=== PATIENT | female | born 1985 | race Caucasian/White ===

== ENCOUNTER → 2020-09-08 17:06 | Outpatient (CLI) | payer BC, SELFPAY ==
[2020-06-01 10:01] VITALS: BMI 29.4
== END ==
PROVIDERS: PCP Family Medicine; Referring Provider Obstetrics & Gynecology; Visit Provider Obstetrics & Gynecology
DX: Z03.818 Encounter for observation for suspected exposure to other biological agents ruled out (principal)
CPT/HCPCS: 87635; C9803; U0002

== ENCOUNTER 2020-09-12 05:03 | Inpatient (IN) | payer BC, SELFPAY ==
[2019-07-16 10:07] VITALS: BMI 27.1
[2020-06-01 10:01] VITALS: BMI 29.4
--- NOTE | 2020-09-06 13:12 | HP.PCM_ITS ---
History and Physical Date of Admission: 09/12/20
--- NOTE | 2020-09-06 13:12 | PCM.HP.BLA ---
History and Physical Date of Admission: 09/12/20
--- NOTE | 2020-09-07 08:33 | PCM.HP.BLA ---
History and Physical Date of Admission: 09/12/20 Expand AllCollapse All? Expand All by Default Hide copied text Hover for details Pre-Op History and Physical ? HPI: The patient is a 34 year old female presenting for pre-operative visit. She is scheduled for , for H/o T incision on uterus- delivery with lower uterine segment fibroid? on 09/12/20.? ?Procedure discussed along with risks, benefits and complications.? Other alternatives discussed for management. Consent form signed? Yes.? PAST MEDICAL HISTORY PAST MEDICAL HISTORY DiagnosisDate ?Anemia in pregnancy07/11/2020 ?HELLP syndrome? ?Pre-eclampsia affecting , antepartum01/23/2017 ? PAST SURGICAL HISTORY PAST SURGICAL HISTORY ProcedureLateralityDate ? SECTION HX 01/23/2017 ?T incision on uterus - 29.5 wks? ?EXCISION OF LINGUAL TONSIL 1991 ?wisdom teeth extraction 2003 ? ? ? CURRENT MEDICATIONS Current Outpatient Medications MedicationSigDispenseRefill ?labetalol (TRANDATE) 200 mg tabletTake 1 tablet by mouth three times daily.180 tablet1 ?ferrous sulfate 325 mg (65 mg iron) tabletTake 325 mg by mouth twice daily with meals. ? ?ondansetron (ZOFRAN) 4 mg tabletTake 1 tablet by mouth every 8 hours as needed for Nausea/Vomiting. (Patient not taking: Reported on 05/19/2020 )30 tablet1 ? Hpscldga-Ur-Yku-Fe-FA ( VITAMIN) tabTake 1 tablet by mouth. ? ?aspirin, enteric coated (ASPIRIN, ENTERIC COATED) 81 mg EC tabletTake 81 mg by mouth once daily. ? ?pyridoxine, vitamin B6, (VITAMIN B6) 100 mg tabletTake 100 mg by mouth once daily. ? ? Current Facility-Administered Medications MedicationDoseRouteFrequencyProviderLast RateLast Admin ?betamethasone acetate-betamethasone sodium phosphate 12 mg injection (CELESTONE) 12 mgINTRAMUSCULARq 24 HRDeidre Olena Alvarado MD 12 mg at 09/06/20 1139 ? ? ALLERGIES: Patient has no known allergies. ? PERSONAL HISTORY:? SOCIAL HISTORY Social History ? Tobacco Use ?Smoking status:Never Smoker ?Smokeless tobacco:Never Used Vaping Use ?Vaping Use:Never used Substance Use Topics ?Alcohol use:No ?Drug use:No ?? ? FAMILY HISTORY:? FAMILY HISTORY FAMILY HISTORY? ProblemRelationAge of Onset ?ThyroidMother? hypo ?NoneFather? ?No Known ProblemsBrother? ?HeartMaternal Grandfather? ?Kidney DiseaseMaternal Grandfather? ?CancerMaternal Grandmother? breast? ?No Known ProblemsPaternal Grandmother? ?No Known ProblemsPaternal Grandfather? ? ? REVIEW OF SYMPTOMS: negative except as noted above ? PHYSICAL EXAMINATION: ? VITALS: Blood pressure 127/91, weight 195 lb (88.5 kg), last menstrual period 12/31/2019, currently . ? GENERAL:? The patient is well nourished, well hydrated in no acute distress.? , The patient is oriented to time, place, and person. NECK: full range of motion ABD: gravid, non tender? GENITALIA: Normal external genitalia, no lesions? ? IMPRESSION: with EDC 10/07/20 scheduled for repeat c/s at 36+ weeks for h/o T incision on uterus ? PLAN:? ?[place] today and tomorrow - due to planned delivery ? Pt has been counseled on risks/benefits and alternatives of surgery including but not limited to anesthesia, bleeding, infection, injury to pelvic structures including bowel, bladder, ureters and vessels.? Pt wishes to proceed with surgery at this time. Reviewed possible that the lower uterine segment fibroid may interfere with my incision and subsequent delivery of the fetus with a low transverse incision at that point counseled her that I may need to make a classical incision for delivery.? We discussed possible risk for blood transfusion if bleeding occurs.? Reviewed possible special care nursery for delivery. Continue labetalol 200 mg 3 times daily for chronic hypertension.? After delivery will follow-up with PCP for medication adjustment as needed. ? ? I have reviewed and updated past medical and surgical history, medications and allergies? Melissa Alvarado MD Assessment & Plan Assessment/Plan (1) Delivery by section using T-shaped incision: (2) History of delivery, currently in third trimester: (3) History of HELLP syndrome, currently : (4) Chronic hypertension affecting : (5) Uterine fibroid during , antepartum:
[2020-09-12] VITALS (37 sets, daily range): BP systolic 102–168; BP diastolic 52–103; PULSE 58–95; RESP 12–18; TEMP 35.7–36.6; O2SAT 93–100; BMI 30.8
[2020-09-12] MEDS: Lactated Ringers 1,000 ML 999 ML IV (05:40)
[2020-09-12 05:49] LABS: Absolute Lymphocyte Count 1.77 X10^3/uL (0.83-4.51); Absolute Neutrophil Count 5.1 X10^3/uL (2.0-7.7); Basophil# 0.01 X10^3/uL; Basophil% 0.1 % (0-1); Eosinophil# 0.03 X10^3/uL; Eosinophils% 0.4 % (0-5); Hematocrit 30.5 % (37-47); Hemoglobin 10.4 g/dL (12.0-15.0); Lymphocyte # 1.77 X10^3/ul (0.83-4.51); Lymphocyte % 24.4 % (19-41); Mean Corp Hgb Conc 34.1 g/dL (32-36); Mean Corpuscular Volume 87.9 fL (81-99); Mean Platelet Vol. 10.6 fl (6.2-12.0); Monocyte# 0.29 X10^3/uL; NRBC Flagged by Analyzer 0 % (0-5); Neutrophil % 70.4 % (47-70); Platelet Count 170 K/mm3 (150-450); RBC Distribution Width CV 14.8 % (11.6-14.6); RBC Distribution Width SD 46.9 fl (35.1-43.9); Red Blood Count 3.47 M/mm3 (4.2-5.4); White Blood Count 7.3 K/mm3 (4.4-11.0)
[2020-09-12] MEDS: Acetaminophen 500 MG Tablet 1000 MG PO ×4 (05:58→23:40)
[2020-09-12] MEDS: Lactated Ringers 1,000 ML 150 ML IV (07:02)
[2020-09-12] MEDS: Sodium Citrate/Citric Acid 30 ML UDC PO (07:02)
[2020-09-12] MEDS: Cefazolin 2 GM in 0.9% Normal Saline 100 ML IV (07:22)
[2020-09-12] MEDS: Oxytocin 30 units/NS 500 ml 30 UNITS/500 ML IV.SOLN 167 UNITS IV (08:27)
--- NOTE | 2020-09-12 08:35 | EX.PCM.OBRPT ---
Maternal Data Information Final SMITH: 10/07/20 Final SMITH Source: US <20 weeks Gestational age: 36.3 Details Operative Information Date of Procedure: 09/12/20 Pre-Operative Diagnosis: Chronic HTN, Gestation- 36 weeks, Previous T incision on uterus Post-Operative Diagnosis: same, Live female Indications for : Repeat Elective , Previous Uterine Surgery and - (Previous T incision ) Classification: Scheduled Procedure Type: low transverse software implementation specialist #1: Tania Conley Type of Anesthesia: Spinal Special Medications: duramorph Antibiotic Given: Ancef 2 grams IV x1 Drain: Campbell to straight drain Estimated Blood Loss: 700 Fluids Replaced: 1200 Findings Description of Procedure: Start time: 743 End time 812 Delivery time 747 infant weight 2650g After informed consent was obtained the patient was taken the operating room she was given spinal anesthesia. She was then placed in the supine position. She was prepped and draped in the normal sterile fashion. Anesthesia was found to be adequate. At this time a Pfannenstiel skin incision was made with a knife was carried down to the underlying layer of the fascia. The fascial incision was then extended laterally using curved Blum scissor. Attention was then turned to the superior aspect of the fascial edge was grasped with 2 straight [place] clamps tented up and the rectus muscle dissected off sharply using curved Blum scissor. Attention was then turned to the inferior aspect where again Mitch clamps were placed in the rectus muscles were tented up and the fascia was dissected off sharply using the curved Blum scissor. Rectus muscles were then in the midline bluntly and peritoneum was entered bluntly. Gentle opposing traction was placed. At this time the vesicouterine peritoneum was identified. No obvious uterine defectes noted from previous T incison. Fibroid superior to incision site. Scalpel was used to make a uterine incision in a low transverse fashion. The uterus was then entered bluntly gentle opposing traction was placed to extend this incision. Membranes were ruptured clear. 's head was brought to the uterine incision was delivered atraumatically. Delayed cord clamping. Cord was clamped and cut was handed to the waiting nursery team. The Placenta was removed from the uterus. The uterus reamined in the intraabdominal cavity. The uterus was cleared of all clots and debris using a lap. At this time the uterine incision was reapproximated using #1 Vicryl in a running locked fashion. Hemostasis was appreciated. Gutters were cleared of all clots and debris. Uterine incision was reevaluated and noted to be of excellent hemostasis. Mela placed. At this time the peritoneum and muscle were grasped with Kellys reapproximated using #2 Vicryl suture in a running fashion. Fascia was then reapproximated using #1 Vicryl in a running fashion. Subcu layer was reapproximated with #2 0 plain gut suture in an interrupted fashion. Subcu layer was closed using 4-0 Monocryl in a subcu fashion. Dry sterile dressing was applied. Instrument lap needle count correct ?2. Anticipated normal postoperative course. Presentation: Positive for Vertex Amniotic Membrane Rupture Type: Artificial Amniotic Fluid Description: Clear Placental Delivery Description: Expressed Placenta Disposition: [facility] Cord Vessel Description: 3 Vessels Cord Entanglement: None Infant A Gender: Female (1 minute): 8 (5 minute): 9 Delayed Cord Clamping: Yes Complications Risks of Surgery Discussed w/Patient: Bleeding, Anesthesia Risks, Infection, Need for Future C-Sections and Injury to surrounding structure(s) including bowel and bladder Complications: none Admit VTE Documentation VTE Present on Admission: Yes VTE Mechan Device Prophylaxis: SCD's VTE Pharm Prophylaxis Ordered: No Reason Prophylaxis Not Ordered: Procedure Not Indicated
[2020-09-12] MEDS: Ketorolac 30 MG/ML Syringe IV ×3 (09:10→20:41)
[2020-09-12] MEDS: Labetalol 200 MG Tablet PO ×2 (09:44→14:56)
[2020-09-12] MEDS: Labetalol (Prefilled) 20 MG/4 ML IV (10:34)
[2020-09-12] MEDS: Magnesium Sulfate 4gm/100mL 4 GM/100 ML IV.SOLN. IV (10:36)
[2020-09-12] MEDS: Ondansetron 4 MG/2 ML Vial IV (10:42)
[2020-09-12] MEDS: Magnesium Sulfate 4gm/100mL 2 GM/50 ML IV.SOLN. IV (11:02)
[2020-09-12 11:10] LABS: Hematocrit 28.5 % (37-47); Hemoglobin 9.6 g/dL (12.0-15.0); Mean Corp Hgb Conc 33.7 g/dL (32-36); Mean Corpuscular Hgb 29.6 pg (27.0-32.0); Mean Platelet Vol. 11.3 fl (6.2-12.0); Platelet Count 177 K/mm3 (150-450); RBC Distribution Width CV 14.9 % (11.6-14.6); Red Blood Count 3.24 M/mm3 (4.2-5.4); White Blood Count 9.6 K/mm3 (4.4-11.0)
[2020-09-12 11:17] LABS: Protein, Urine (Random) 12.9 mg/dL (<11.9); Protein:Creat Ratio 147 mg/g CRE (0-200)
[2020-09-12] MEDS: Magnesium Sulfate 20 GM/500 ML BAG IV ×3 (11:17→20:36)
[2020-09-12 11:21] LABS: AST(SGOT) 17 U/L (15-37); Alanine Aminotransfer ALT/SGPT 13 U/L (13-56); Creatinine, Serum 0.55 mg/dL (0.55-1.02); EST Glomerular Filtration Rate 134 mL/min (>60); Est Glom Filt Rate - Afr Amer 162 mL/min (>60); Uric Acid 5.6 mg/dL (2.6-6.0)
[2020-09-12 11:24] LABS: International Normalized Ratio 1.1; Prothrombin Time (Protime)PT. 13.3 SECONDS (11.7-14.9)
[2020-09-12 11:25] LABS: Partial Thromboplast Time 24.3 Seconds (24.1-36.2)
[2020-09-12] MEDS: Lactated Ringers 1,000 ML 50 ML IV (11:43)
--- NOTE | 2020-09-12 11:45 | NURSING ---
Bedside shift report given to Brianna Nagy RN. She will assume care of patient at this time.
[2020-09-12] MEDS: Ferrous Sulfate 325 MG Tablet PO ×2 (12:05→17:58)
[2020-09-12] MEDS: 0.9% Saline Lock 10 ML Syringe IV (20:41)
[2020-09-13] VITALS (15 sets, daily range): BP systolic 100–145; BP diastolic 47–84; PULSE 78–106; RESP 16–18; TEMP 36.6–37.4; O2SAT 94–99
[2020-09-13] MEDS: Ketorolac 30 MG/ML Syringe IV (02:49)
[2020-09-13] MEDS: 0.9% Saline Lock 10 ML Syringe IV ×2 (02:49→10:36)
--- NOTE | 2020-09-13 03:42 | NURSING ---
Void in documentation on MAR Magnesium flowsheet. At 2335,0135, & 0240 patellar reflexes 2+normal.
[2020-09-13 04:56] LABS: Hematocrit 25.7 % (37-47); Hemoglobin 8.5 g/dL (12.0-15.0); Mean Corp Hgb Conc 33.1 g/dL (32-36); Mean Corpuscular Hgb 29.5 pg (27.0-32.0); Mean Corpuscular Volume 89.2 fL (81-99); Mean Platelet Vol. 10.4 fl (6.2-12.0); Platelet Count 165 K/mm3 (150-450); RBC Distribution Width CV 15.3 % (11.6-14.6); RBC Distribution Width SD 49.4 fl (35.1-43.9); Red Blood Count 2.88 M/mm3 (4.2-5.4); White Blood Count 8.7 K/mm3 (4.4-11.0)
[2020-09-13] MEDS: Lactated Ringers 1,000 ML 50 ML IV (05:51)
[2020-09-13] MEDS: Magnesium Sulfate 20 GM/500 ML BAG IV (05:55)
[2020-09-13] MEDS: Acetaminophen 500 MG Tablet 1000 MG PO ×4 (06:25→23:48)
[2020-09-13] MEDS: Ibuprofen 600 MG Tablet PO ×3 (08:06→21:23)
--- NOTE | 2020-09-13 09:13 | PCM.PROGNOTE ---
Subjective Subjective Doing well per patient and nursing staff. Ambulating and taking PO without difficulty. Voiding and galicia out. Not passing flatus. Continues on Mag due to severe range BP PP. Denies headache, visual changes, chest pain, shortness of breath, dizziness, leg pain, increased vaginal bleeding or clots. Pain controlled. without difficulty. Objective Data Objective Data Vital Signs: Vital Signs Temp Pulse Resp BP Pulse Ox 98.6 F 88 16 112/67 99 09/13/20 07:40 09/13/20 07:40 09/13/20 07:40 09/13/20 07:40 09/13/20 07:40 Oxygen Delivery Method Room Air Weight: 194 lb 0.108 oz Body Mass Index (BMI) 30.8 Intake & Output: Intake and Output for Last 24 Hours 09/11/20 09/12/20 09/13/20 23:59 23:59 23:59 Intake Total 4508.35 / 4508.35 1560.85 / 1560.85 Output Total 1800 / 1800 1050 / 1050 Balance 2708.35 / 2708.35 510.85 / 510.85 Lab / Micro Data Result Diagrams: 09/13/20 04:50 09/12/20 10:50 Labs: Laboratory Results - last 24 hr 09/12/20 09/12/20 09/12/20 10:50 10:50 10:50 WBC 9.6 RBC 3.24 L Hgb 9.6 L Hct 28.5 L MCV 88.0 MCH 29.6 MCHC 33.7 RDW Std Deviation 47.0 H RDW Coeff of Faisal 14.9 H Plt Count 177 MPV 11.3 PT INR APTT Creatinine 0.55 Estim Creat Clear Calc 136.20 Est GFR (MDRD) Af Amer 162 Est GFR (MDRD) Non-Af 134 Uric Acid 5.6 AST 17 ALT 13 U Random Total Protein Urine Creatinine Protein/Creatinin Ratio Screen NEGATIVE Baby's Blood Type O POSITIVE Baby's NIYA NEGATIVE 09/12/20 09/12/20 09/13/20 10:50 10:50 04:50 WBC 8.7 RBC 2.88 L Hgb 8.5 L Hct 25.7 L MCV 89.2 MCH 29.5 MCHC 33.1 RDW Std Deviation 49.4 H RDW Coeff of Faisal 15.3 H Plt Count 165 MPV 10.4 PT 13.3 INR 1.1 APTT 24.3 Creatinine Estim Creat Clear Calc Est GFR (MDRD) Af Amer Est GFR (MDRD) Non-Af Uric Acid AST ALT U Random Total Protein 12.9 H Urine Creatinine 87.90 Protein/Creatinin Ratio 147 Screen Baby's Blood Type Baby's NIYA Physical Exam Const alert and oriented x3 General Appearance: cooperative Orientation / Consciousness: awake, oriented to person, oriented to place and oriented to time Exam Limitations: no limitations HEENT normocephalic Head and Scalp: normal to inspection, normocephalic and atraumatic Face and Sinus: normal facial exam Eyes General Eye: normal appearance of both eyes Neck full ROM Chest Chest: symmetrical chest wall rise Resp normal respiratory effort and normal air movement Auscultation: clear to auscultation bilaterally Cardio regular rate, regular rhythm, S1 normal heart sound, S2 normal heart sound, no murmurs, no rub, no gallops and no clicks GI normal to inspection, nondistended, normoactive bowel sounds and non-tender GI Narrative: Fundus firm 2 below U. Dressing dry and intact appearance of the vagina normal Bladder / Kidney Exam: no CVA tenderness Back/Spine normal ROM Extremity normal to inspection and full ROM Skin no rashes or lesions noted Neuro oriented x3, CN's II-XII intact bilaterally and moves all extremities Sensorium / Orientation: awake, alert and oriented to person Motor Exam: clonus absent Deep Tendon Reflexes: Rt Patellar (L4): 2+ and Lt Patellar (L4): 2+ Assessment & Plan Assessment/Plan (1) Chronic hypertension affecting : (2) Delivery by section using T-shaped incision: (3) Acute blood loss anemia: PLAN: 1) Routine postoperative care 2) BP stable, continue magnesium infusion for 24 hrs then d/C 3) [place] out and urinating 4) Hgb 8.5, repeat CBC in am, asymptomatic 5) Pain management 6) Plan D/C home POD #3
[2020-09-13] MEDS: Senna/Docusate Sodium 1 Tablet PO (09:51)
[2020-09-13] MEDS: Ferrous Sulfate 325 MG Tablet PO ×2 (12:21→17:42)
[2020-09-13] MEDS: Labetalol 200 MG Tablet PO ×2 (14:38→22:13)
[2020-09-14 02:41] VITALS: BP 130/78; PULSE 88; RESP 16; TEMP 36.6; O2SAT 97
[2020-09-14] MEDS: Ibuprofen 600 MG Tablet PO ×2 (02:44→08:35)
[2020-09-14 05:50] LABS: Absolute Lymphocyte Count 1.57 X10^3/uL (0.83-4.51); Absolute Neutrophil Count 5.8 X10^3/uL (2.0-7.7); Basophil# 0.02 X10^3/uL; Basophil% 0.3 % (0-1); Eosinophil# 0.03 X10^3/uL; Eosinophils% 0.4 % (0-5); Hematocrit 24.3 % (37-47); Hemoglobin 7.9 g/dL (12.0-15.0); Lymphocyte # 1.57 X10^3/ul (0.83-4.51); Lymphocyte % 19.8 % (19-41); Mean Corp Hgb Conc 32.5 g/dL (32-36); Mean Corpuscular Hgb 29.8 pg (27.0-32.0); Mean Corpuscular Volume 91.7 fL (81-99); Mean Platelet Vol. 10.2 fl (6.2-12.0); Monocyte# 0.51 X10^3/uL; Monocyte% 6.4 % (0-10); NRBC Flagged by Analyzer 0 % (0-5); Neutrophil # 5.75 X10^3/uL (2.7-7.7); Neutrophil % 72.6 % (47-70); Platelet Count 159 K/mm3 (150-450); RBC Distribution Width CV 15.9 % (11.6-14.6); RBC Distribution Width SD 51.6 fl (35.1-43.9); Red Blood Count 2.65 M/mm3 (4.2-5.4); White Blood Count 7.9 K/mm3 (4.4-11.0)
[2020-09-14 06:07] VITALS: BP 137/78; PULSE 86
[2020-09-14] MEDS: Labetalol 200 MG Tablet PO ×2 (06:09→12:57)
[2020-09-14] MEDS: Acetaminophen 500 MG Tablet 1000 MG PO ×2 (06:36→12:32)
[2020-09-14 08:34] VITALS: BP 125/65; PULSE 97; RESP 16; TEMP 36.5
--- NOTE | 2020-09-14 09:15 | PN.OBGYN_ITS ---
Subjective Subjective Patient seen at bedside, doing well. Patient reports good pain control. Mild lochia. Patient is passing flatus,+ bowel movement, voiding without difficulty, ambulating without feeling short of breath or dizzy. Denies nausea or vomiting. No headaches or visual changes. Breast-feeding going well. Objective Data Objective Data Vital Signs: Vital Signs Temp Pulse Resp BP Pulse Ox 97.7 F L 97 16 125/65 H 97 09/14/20 08:34 09/14/20 08:34 09/14/20 08:34 09/14/20 08:34 09/14/20 02:41 Oxygen Delivery Method Room Air Weight: 88 kg Body Mass Index (BMI) 30.8 Intake & Output: Intake and Output for Last 24 Hours 09/12/20 09/13/20 09/14/20 23:59 23:59 23:59 Intake Total 4508.35 / 4508.35 2045.02 / 2045.02 Output Total 1800 / 1800 1950 / 1950 Balance 2708.35 / 2708.35 95.02 / 95.02 Lab / Micro Data Result Diagrams: 09/14/20 05:35 09/12/20 10:50 Labs: Laboratory Results - last 24 hr 09/14/20 05:35 WBC 7.9 RBC 2.65 L Hgb 7.9 L Hct 24.3 L MCV 91.7 MCH 29.8 MCHC 32.5 RDW Std Deviation 51.6 H RDW Coeff of Faisal 15.9 H Plt Count 159 MPV 10.2 Immature Gran % (Auto) 0.500 Neut % (Auto) 72.6 H Lymph % (Auto) 19.8 [place] % (Auto) 6.4 Eos % (Auto) 0.4 Baso % (Auto) 0.3 Absolute Neuts (auto) 5.8 Absolute Lymphs (auto) 1.57 Nucleated RBC % 0 ROS Review of Systems ROS Unobtainable: Denies due to encephalopathy, due to endotracheal tube, due to mental condition, due to mental status or other Physical Exam Const alert, oriented x3 and no apparent distress General Appearance: cooperative and comfortable HEENT normocephalic GI GI Narrative: Dressing dry and intact. Abdomen soft nontender. Uterus Palpation: uterus fundus firm Assessment & Plan (1) Acute blood loss anemia: (2) Uterine fibroid during , antepartum: (3) Chronic hypertension affecting : (4) Delivered by delivery following previous delivery: PLAN: Recheck CBC at lunch- patient is asymptomatic. Start IRON 325mg BID VS stable- BPs controlled with Labetalol- continue 200mg TID dc home today if CBC stable
--- NOTE | 2020-09-14 09:21 | PCM.DC ---
Discharge Instructions Diet Discharge Diet: No restrictions Activity Discharge Activity: May not drive while taking narcotic pain medications. and May Shower May resume sexual activity in: 6-8 weeks Lifting Restrictions: 25 Dressing / Incision Call your doctor if your incision/area has: Continuous Slow Oozing, Sudden Increased Bleeding, Increased Pain/ Swelling, Increased Redness, Foul Smelling Discharge and Swelling at the incision site Call your doctor if you observe: Fever of 101 or Higher, Inability to urinate, Using more than one pad per hour and Uncontrolled pain Additional Dressing/Incision Instructions:: remove dressing at 7 days post op- if it becomes saturated prior to that time you may remove it. Let soap and water run over incision sites and dab dry. keep incision clean and dry. Follow Up Care Please Follow Up With: Melissa Rao MD When: 1-2 weeks post of incision check and again at 6 weeks post . [phone] Test Results: Test results from this visit will be discussed in further detail at your follow-up appointment, if applicable. Discharge Plan Admission Admit Date/Time: 09/12/20 05:03 Attending Provider: Melissa Rao Primary Care Provider: Tami Hancock Discharge Orders/Prescriptions Prescriptions: New acetaminophen 500 mg Tablet 1,000 mg PO Q6 Qty: 60 RF: 0 ibuprofen 600 mg tablet 600 mg PO Q6H Qty: 60 RF: 0 sennosides-docusate sodium [Stool Softener-Stimulant Laxat] 8.6-50 mg Tablet 1 - 2 tab PO DAILY Qty: 14 RF: 0 simethicone [Mi-Acid Gas Relief(simethicon)] 80 mg Tablet,Chewable 80 mg PO TID Qty: 20 RF: 0 Continued labetalol 200 mg tablet 200 mg PO TID RF: 0 ferrous sulfate [iron] 325 mg (65 mg iron) Tablet 325 mg PO BID RF: 0 Discontinued Aspirin Low Dose 81 mg PO/SL DAILY RF: 0 Referrals / Follow Up: Tami Hancock MD [Primary Care Provider] -
--- NOTE | 2020-09-14 10:28 | DS.PCM_ITS ---
Discharge Summary Date of Admission: 09/12/20 Date of Discharge: 09/14/20 Summary: Patient was admitted to [facility] September 12, 2020 for a repeat low transverse section at 36.3 weeks gestation due to prior T- incision on the uterus. Patient had a couple of severe range blood pressures immediately postop and decision was made to place on magnesium sulfate for 24 hours. Blood pressures normalized. Patient still taking labetalol 200 mg 3 times daily. Patient remained asymptomatic in the hospital and her preeclamptic labs were within normal limits. Patient had acute on chronic blood loss anemia with a starting hemoglobin of 10.9 down to the lowest 7.9 on postoperative day #2. Patient remained asymptomatic. Ambulating without difficulty. Patient discharged home on postoperative day #2 with the intent she will continue to monitor blood pressures at home 2-3 times daily. She will follow-up in the office on Friday, September 18, 2020 for a blood pressure check. Meaningful Use Info Meaningful Use Diagnoses (Choose all that apply): None applicable Discharge Plan Admission Admit Date/Time: 09/12/20 05:03 Attending Provider: Melissa Rao Primary Care Provider: Tami Hancock Instructions Forms: Information Patient Instructions: Understanding Preeclampsia, After a Additional Instructions / Restrictions: To keep follow up apt for Friday at 10:00 for blood pressure check in the office To make and apt to be seen in 1-2 weeks for and incision check in the office To make and apt for 6 week follow up check. Discharge Orders/Prescriptions Prescriptions: New acetaminophen 500 mg Tablet 1,000 mg PO Q6 Qty: 60 RF: 0 ibuprofen 600 mg tablet 600 mg PO Q6H Qty: 60 RF: 0 sennosides-docusate sodium [Stool Softener-Stimulant Laxat] 8.6-50 mg Tablet 1 - 2 tab PO DAILY Qty: 14 RF: 0 simethicone [Mi-Acid Gas Relief(simethicon)] 80 mg Tablet,Chewable 80 mg PO TID Qty: 20 RF: 0 Continued labetalol 200 mg tablet 200 mg PO TID RF: 0 ferrous sulfate [iron] 325 mg (65 mg iron) Tablet 325 mg PO BID RF: 0 Discontinued Aspirin Low Dose 81 mg PO/SL DAILY RF: 0 Referrals / Follow Up: Tami Hancock MD [Primary Care Provider] - Disposition Disposition (needs filled in before D/C Order can be placed): Home, self care
[2020-09-14] MEDS: Senna/Docusate Sodium 1 Tablet PO (11:07)
[2020-09-14] MEDS: Ferrous Sulfate 325 MG Tablet PO (12:33)
[2020-09-14 13:00] VITALS: BP 133/87; PULSE 89; RESP 20; TEMP 36.6
[2020-09-14 13:03] LABS: Hematocrit 26.6 % (37-47); Hemoglobin 8.6 g/dL (12.0-15.0); Mean Corp Hgb Conc 32.3 g/dL (32-36); Mean Corpuscular Hgb 29.7 pg (27.0-32.0); Mean Corpuscular Volume 91.7 fL (81-99); Mean Platelet Vol. 10.2 fl (6.2-12.0); Platelet Count 184 K/mm3 (150-450); RBC Distribution Width CV 15.9 % (11.6-14.6); White Blood Count 8.6 K/mm3 (4.4-11.0)
--- NOTE | 2020-09-14 16:17 | NURSING ---
1617- late entry, fob carrying infant in [facility], had done discharge teaching with parents questions answered. reinforced monitoring bp and when to return to office.
== END 2020-09-14 16:04 | disposition home or self-care (01) | DRG 786 ==
PROVIDERS: Advanced Practice Midwife; Admitting Provider Obstetrics & Gynecology; PCP Family Medicine; Referring Provider Obstetrics & Gynecology; Visit Provider Obstetrics & Gynecology
PROC: 10D00Z1 Extraction of Products of Conception, Low, Open Approach (ICD-10-PCS; CPT 59514; principal; 2020-09-12 07:15)
DX: O34.218 Maternal care for other type scar from previous cesarean delivery (principal); O60.13X0 Preterm labor second trimester with preterm delivery third trimester, not applicable or unspecified; O10.92 Unspecified pre-existing hypertension complicating childbirth; N85.8 Other specified noninflammatory disorders of uterus; Z3A.36 36 weeks gestation of pregnancy; Z37.0 Single live birth; D25.9 Leiomyoma of uterus, unspecified; O34.13 Maternal care for benign tumor of corpus uteri, third trimester; O11.4 Pre-existing hypertension with pre-eclampsia, complicating childbirth
CPT/HCPCS: 82565; 82570; 84156; 84450; 84460; 84550; 85025; 85027; 85461; 85610; 85730; 86850; 86870; 86900; 86901; 90384; 99218; J7120; A4216; G0378; J2405; J2790

== ENCOUNTER 2020-09-18 10:45 | Outpatient (CLI) | payer BC, SELFPAY ==
[2020-09-12 08:48] VITALS: BMI 30.8
[2020-09-18] VITALS (10 sets, daily range): BP systolic 120–163; BP diastolic 78–111; PULSE 68–98; TEMP 36.6; O2SAT 99–100; BMI 29.0
[2020-09-18 11:33] LABS: Hematocrit 30.4 % (37-47); Mean Corp Hgb Conc 32.9 g/dL (32-36); Mean Corpuscular Hgb 29.5 pg (27.0-32.0); Mean Corpuscular Volume 89.7 fL (81-99); Mean Platelet Vol. 9.9 fl (6.2-12.0); Platelet Count 281 K/mm3 (150-450); RBC Distribution Width CV 15.1 % (11.6-14.6); RBC Distribution Width SD 48.8 fl (35.1-43.9); Red Blood Count 3.39 M/mm3 (4.2-5.4); White Blood Count 7.1 K/mm3 (4.4-11.0)
[2020-09-18 11:36] LABS: AST(SGOT) 31 U/L (15-37); Alanine Aminotransfer ALT/SGPT 56 U/L (13-56); Creatinine, Serum 0.72 mg/dL (0.55-1.02); EST Glomerular Filtration Rate 99 mL/min (>60); Est Glom Filt Rate - Afr Amer 120 mL/min (>60); Estimated Creatinine Clearance 104.04 ml/min; Uric Acid 6.5 mg/dL (2.6-6.0)
[2020-09-18 11:41] LABS: Prothrombin Time (Protime)PT. 12.4 SECONDS (11.7-14.9)
[2020-09-18 11:42] LABS: Partial Thromboplast Time 21.6 Seconds (24.1-36.2)
[2020-09-18 11:46] LABS: Protein, Urine (Random) 10.1 mg/dL (<11.9); Protein:Creat Ratio 207 mg/g CRE (0-200)
[2020-09-18] MEDS: Labetalol 200 MG Tablet 300 MG PO ×2 (12:02→19:53)
[2020-09-18] MEDS: NIFEdipine 30 MG Tablet PO (12:03)
--- NOTE | 2020-09-18 13:13 | PCM.HP.OB ---
HPI - General HPI Narrative OLIVIER OBRIEN, is a 34 F who presents For Elevated BP Post . Pt is s/p repeat LTCS on 09/12/20 with CHTN complicating . pt had well controlled BPs until day of surgery- and had some severe range BP with normal pRE E labs. she was placed on Magnesium Sulfate for 24hr Post and was discharged home on 09/14/20 in stable condition without adjusting BP meds. Pt was seen in our office today for BP check and BP average was elevated at 153/103. pt was asymptomatic in office but was sent to L&D for labs, serial BPs and Monitoring . pt denies Headache, Visual changes, swelling, RUQ or epigastric apin. pt reports at home BP highest was 140/89. [facility] Medical History (Updated 09/18/20 @ 13:[address] Melissa Rao MD) History of pre-term labor Hypertension Home Medications ferrous sulfate [iron] 325 mg PO BID 09/12/20 [History Last Taken 09/17/20] labetalol 200 mg PO TID 09/12/20 [History Last Taken 09/18/20] acetaminophen 1,000 mg PO Q6 #60 tab 09/14/20 [Rx Last Taken 09/18/20] ibuprofen 600 mg PO Q6H #60 tab 09/14/20 [Rx Last Taken 09/18/20] sennosides-docusate sodium [Stool Softener-Stimulant Laxat] 1 - 2 tab PO DAILY #14 tab 09/14/20 [Rx Last Taken 09/17/20] simethicone [Mi-Acid Gas Relief(simethicon)] 80 mg PO TID #20 tab 09/14/20 [Rx Last Taken 09/17/20] Allergy/AdvReac Type Severity Reaction Status Date / Time No Known Allergies Allergy Verified 09/18/20 11:10 Surgical History History of emergency section Social History (Updated 06/01/20 @ 10:43 by Derick CARLSON, PA) Smoking Status: Never smoker alcohol intake: never History Elective abortions Hx Para 1 Spontaneous abortions Hx # Term Pregnancies Ectopic pregnancies Hx # Pregnancies Multiple births # of living children Vital Signs Vital Signs Vital Signs: 09/18/20 11:01 09/18/20 11:08 09/18/20 11:12 Pulse Rate 72 74 74 Blood Pressure 163/111 H 158/106 H BP Systolic 163 158 BP Diastolic 111 106 Pulse Ox 99 09/18/20 11:22 09/18/20 13:02 Pulse Rate 75 68 Blood Pressure 148/105 H 142/79 H BP Systolic 148 142 BP Diastolic 105 79 Pulse Ox Labs Labs Labs: Blood Type O NEGATIVE Antibody Screen POSITIVE H Hct 30.4 % (37-47) L Hgb 10.0 g/dL (12.0-15.0) L Rhogam given: Yes Assessment & Plan (1) Hypertension: QUALIFIERS: Hypertension type: essential hypertension Qualified Code(s): I10 - Essential (primary) hypertension (2) Delivered by delivery following previous delivery: (3) Chronic hypertension affecting : PLAN: Montior BPs overnight PRE E labs done and WNL Increase Labetalol to 300mg TID and Add Procardia 30XL daily most likely dc home in am- will not readminister magnesium
[2020-09-19] VITALS (7 sets, daily range): BP systolic 124–157; BP diastolic 77–91; PULSE 62–81; RESP 18; TEMP 36.1–36.6; O2SAT 97–99
[2020-09-19] MEDS: 0.9% Saline Lock 10 ML Syringe IV (04:08)
[2020-09-19] MEDS: Labetalol 200 MG Tablet 300 MG PO (04:08)
--- NOTE | 2020-09-19 07:24 | DS.PCM_ITS ---
Providers Primary Care Physician: Dr. Tami Hancock MD- make appt to see her in a few weeks for Chronic Hypertension Reason For Visit: RO PRE-E Diagnosis Discharge Diagnosis (1) Hypertension: Status: Chronic Code(s): I10 - Essential (primary) hypertension Qualifiers: Hypertension type: essential hypertension Qualified Code(s): I10 - Essential (primary) hypertension (2) Delivered by delivery following previous delivery: Status: Acute Code(s): O34.219 - Maternal care for unspecified type scar from previous delivery (3) Chronic hypertension affecting : Status: Chronic Code(s): O10.919 - Unspecified pre-existing hypertension complicating , unsp ecified trimester Medications at Discharge Home Medications ferrous sulfate [iron] 325 mg PO BID 09/12/20 acetaminophen 1,000 mg PO Q6 #60 tab 09/14/20 ibuprofen 600 mg PO Q6H #60 tab 09/14/20 sennosides-docusate sodium [Stool Softener-Stimulant Laxat] 1 - 2 tab PO DAILY #14 tab 09/14/20 simethicone [Mi-Acid Gas Relief(simethicon)] 80 mg PO TID #20 tab 09/14/20 labetalol 300 mg PO Q8H #90 tab 09/19/20 labetalol 300 mg PO TID #90 tab 09/19/20 nifedipine 30 mg PO DAILY #30 tab 09/19/20 nifedipine [Procardia XL] 30 mg PO DAILY #30 tab 09/19/20 Hospital Course Summary of Care Provided Hospital Course: Patient was readmitted to [facility] on September 18, 2020 for observation due to elevated blood pressures in the office. Patient is a known chronic hypertensive and did receive magnesium sulfate status post delivery on September 12, 2020 prior to her discharge home on September 14, 2020. Patient during this hospital stay was changed to labetalol 300 mg 3 times daily and Procardia 30 XL daily was added. Blood pressures overall stable. Will discharge patient home. Follow-up in the office on September 21 at 10 AM for blood pressure check. Patient also follow-up with her primary care physician for chronic hypertension. Physical Exam Narrative Patient seen at bedside today. Doing well. Patient denies any headaches, visual changes, epigastric or right upper quadrant pain. Patient offers no other concerns. Const alert and oriented x3 HEENT normocephalic Head and Scalp: atraumatic Skin no rashes or lesions noted Neuro no focal motor deficits and deep tendon reflexes 2+ bilaterally Psych mental status grossly normal ABG / Lab / Microbiology Data Result Diagrams: 09/18/20 11:05 09/18/20 11:05 Laboratory: Laboratory Results - last 24 hr 09/18/20 09/18/20 09/18/20 11:05 11:05 11:05 WBC 7.1 RBC 3.39 L Hgb 10.0 L Hct 30.4 L MCV 89.7 MCH 29.5 MCHC 32.9 RDW Std Deviation 48.8 H RDW Coeff of Faisal 15.1 H Plt Count 281 MPV 9.9 PT 12.4 INR 1.0 APTT 21.6 L Creatinine 0.72 Estim Creat Clear Calc 104.04 Est GFR (MDRD) Af Amer 120 Est GFR (MDRD) Non-Af 99 Uric Acid 6.5 H AST 31 ALT 56 U Random Total Protein Urine Creatinine Protein/Creatinin Ratio 09/18/20 11:05 WBC RBC Hgb Hct MCV MCH MCHC RDW Std Deviation RDW Coeff of Faisal Plt Count MPV PT INR APTT Creatinine Estim Creat Clear Calc Est GFR (MDRD) Af Amer Est GFR (MDRD) Non-Af Uric Acid AST ALT U Random Total Protein 10.1 Urine Creatinine 48.80 Protein/Creatinin Ratio 207 H Meaningful Use Info Meaningful Use Diagnoses (Choose all that apply): None applicable Discharge Plan Admission Reason For Visit: RO PRE-E Attending Provider: Maame Nguyen Primary Care Provider: Tami Hancock Instructions Patient Instructions: Taking Your Blood Pressure, High Blood Pressure (Hypertension), Taking Blood Pressure Medications, Your High Blood Pressure Risk Factors Additional Instructions / Restrictions: If the following symptoms of illness occur, a call to your baby's healthcare provider is in order: * Blue lip color is a 911 call! * Blue or pale colored skin * Yellow skin or eyes * Patches of white found in baby's mouth * Eating poorly or refusing to eat * No stool for 48 hours and less than 6 wet diapers a day * Redness, drainage or foul odor from the umbilical cord * Does not urinate within 6 to 8 hours of circumcision * Temperature of 100.4F or more * Difficulty breathing * Repeated vomiting or several refused feedings in a row * Listlessness * Crying excessively with no known cause * An unusual or severe rash (other than prickly heat) * Frequent or successive bowel movements with excess fluid, mucous or foul order * Experiences drastic behavior changes such as increased irritability, excessive crying without a cause, extreme sleepiness or floppy arms and legs * Congested cough, running eyes or nose. If you are , call your market research consultant or healthcare provider if you observe the following: * If your baby is not effectively nursing at least 8 to 12 feedings each day. * If the baby has less than 4 wet diapers in a 24-hour period in the first week of life, and less than 6 wet diapers in a 24-hour period after the baby is 7 days old. * If your baby is not stooling 3 to 4 times a day once your milk is in greater supply. * If the baby refuses to eat for 6 to 8 hours. Discharge Orders/Prescriptions Prescriptions: New nifedipine 30 mg Tablet Extended Release 24hr 30 mg PO DAILY Qty: 30 RF: 2 labetalol 200 mg Tablet 300 mg PO Q8H Qty: 90 RF: 2 nifedipine [Procardia XL] 30 mg tablet extended release 24hr 30 mg PO DAILY Qty: 30 RF: 2 labetalol 300 mg tablet 300 mg PO TID Qty: 90 RF: 2 Continued ferrous sulfate [iron] 325 mg (65 mg iron) Tablet 325 mg PO BID RF: 0 acetaminophen 500 mg Tablet 1,000 mg PO Q6 Qty: 60 RF: 0 ibuprofen 600 mg tablet 600 mg PO Q6H Qty: 60 RF: 0 sennosides-docusate sodium [Stool Softener-Stimulant Laxat] 8.6-50 mg Tablet 1 - 2 tab PO DAILY Qty: 14 RF: 0 simethicone [Mi-Acid Gas Relief(simethicon)] 80 mg Tablet,Chewable 80 mg PO TID Qty: 20 RF: 0 Discontinued labetalol 200 mg tablet 200 mg PO TID RF: 0 Referrals: Tami Hancock MD [Primary Care Provider] - Disposition Patient Disposition: Home, self care
--- NOTE | 2020-09-19 08:20 | PCM.PN.OB ---
Subjective Subjective Patient was seen at bedside this morning, doing well. Patient denies any headaches, visual changes, right upper quadrant epigastric pain. Objective Data Objective Data Vital Signs: Vital Signs Temp Pulse Resp BP Pulse Ox 97.7 F L 81 18 133/87 H 98 09/19/20 07:59 09/19/20 07:59 09/19/20 07:59 09/19/20 07:59 09/19/20 07:59 Oxygen Delivery Method Room Air Weight: 81.647 kg Body Mass Index (BMI) 29.0 Lab / Micro Data Result Diagrams: 09/18/20 11:05 09/18/20 11:05 Labs: Laboratory Results - last 24 hr 09/18/20 09/18/20 09/18/20 11:05 11:05 11:05 WBC 7.1 RBC 3.39 L Hgb 10.0 L Hct 30.4 L MCV 89.7 MCH 29.5 MCHC 32.9 RDW Std Deviation 48.8 H RDW Coeff of Faisal 15.1 H Plt Count 281 MPV 9.9 PT 12.4 INR 1.0 APTT 21.6 L Creatinine 0.72 Estim Creat Clear Calc 104.04 Est GFR (MDRD) Af Amer 120 Est GFR (MDRD) Non-Af 99 Uric Acid 6.5 H AST 31 ALT 56 U Random Total Protein Urine Creatinine Protein/Creatinin Ratio 09/18/20 11:05 WBC RBC Hgb Hct MCV MCH MCHC RDW Std Deviation RDW Coeff of Faisal Plt Count MPV PT INR APTT Creatinine Estim Creat Clear Calc Est GFR (MDRD) Af Amer Est GFR (MDRD) Non-Af Uric Acid AST ALT U Random Total Protein 10.1 Urine Creatinine 48.80 Protein/Creatinin Ratio 207 H Physical Exam Const alert, oriented x3 and well nourished General Appearance: cooperative and comfortable Orientation / Consciousness: awake Exam Limitations: no limitations HEENT normocephalic Neck General: normal visual inspection Extremity normal to inspection and no calf tenderness Skin no rashes or lesions noted Neuro oriented x3 and CN's II-XII intact bilaterally Psych mental status grossly normal Assessment & Plan (1) Hypertension: QUALIFIERS: Hypertension type: essential hypertension Qualified Code(s): I10 - Essential (primary) hypertension PLAN: Hospital day #1- exacerbation of chronic Hypertension 1) PRE E LABS wnl 2) dc home today with follow up in office monday september 21, 2020 3) procardia 30xl daily 4) labetalol 300mg TID 5) monitor BPs at home 6) follow up with PCP for CHTN and further work up.
--- NOTE | 2020-09-19 09:06 | NURSING ---
Cuddles tag #2 removed from baby and homegoing instructions reviewed with mother.
== END 2020-09-19 09:07 | disposition home or self-care (01) ==
LOC: WPOUT 10:54 → WP 10:56
PROVIDERS: Obstetrics & Gynecology; PCP Family Medicine; Referring Provider Advanced Practice Midwife; Visit Provider Advanced Practice Midwife
DX: O10.03 Pre-existing essential hypertension complicating the puerperium (principal)
CPT/HCPCS: 36415; 82565; 82570; 84156; 84450; 84460; 84550; 85027; 85610; 85730; 99218; A4216; G0378

== ENCOUNTER → 2021-02-17 13:58 | Outpatient (CLI) | payer BC, SELFPAY | PROVIDERS: Referring Provider Physician Assistant Medical; Visit Provider Physician Assistant Medical | DX: J02.9 Acute pharyngitis, unspecified (principal) | CPT/HCPCS: 87635; U0005; U0003 ==

== ENCOUNTER 2021-08-21 21:21 | Emergency (ER) | payer BC, SELFPAY ==
[2021-08-21 21:23] VITALS: BP 153/99; PULSE 117; RESP 18; TEMP 36.6; O2SAT 96; BMI 28.2
--- NOTE | 2021-08-21 22:22 | EDS_ITS ---
HPI HPI - URI History of Present Illness Chief Complaint: Cold Sx Informant: patient Onset/Context/Timing Onset: Days (4) Context: Gradual Onset Timing: Continuous Quality: cough, bilat eye redness/discomfort Current Severity: Moderate Maximum Severity: Moderate Worsened by: - (nothing) Relieved by: - (nothing including augmentin and ofloxacin eye drops) Associated Symptoms Associated Symptoms: Positive for Nasal Congestion, Sinus Pressure, Diarrhea and Nonproductive cough; Negative for Shortness of Breath, Chest Pain and Hemoptysis Narrative Narrative: Patient states she has 2 kids that have had bronchitis/upper respiratory tract infections recently, one of them had pinkeye. Patient states she caught pinkeye from her child about 4 or 5 days ago, she had in her left eye, then it went over into her right eye the next day when she subsequently developed fevers, chills, cough, some sinus pressure, diarrhea, myalgias, and generalized malaise. She has been breathing okay except having some trouble breathing through her nose due to nasal congestion, but no chest symptoms. She went to urgent care for these issues and was prescribed ofloxacin eyedrops and Augmentin for what may have been a sinus infection. She states none of these are helping anything. She has been taking some guaifenesin/dextromethorphan for the cough which helps some. She is unvaccinated against COVID, and has not been tested for it here recently nor did she have any other tests while she was at urgent care. [facility] ED Constitutional Constitutional ED: Reports body ache(s), chills, fatigue, fever(s) and malaise Eyes Eyes: Reports discharge from eye(s) and erythema; Denies blurry vision or change in vision ENT ENT ED: Reports discharge from eye(s), nasal congestion, sinus pressure and sore throat Cardiovascular Cardiovascular: Denies chest pain or palpitations Respiratory/Chest Respiratory/Chest: Reports cough; Denies dyspnea or dyspnea on exertion Gastrointestinal Gastrointestinal: Reports diarrhea; Denies abdominal pain, nausea or vomiting Genitourinary Genitourinary ED: Denies dysuria or hematuria Musculoskeletal Musculoskeletal: Denies myalgias or neck pain Integumentary Denies abscess or rash Neurologic Neurologic: Denies headache(s), paresthesias or weakness Psychiatric Psychiatric: Denies depression or suicidal thoughts Endocrine Endocrinology: Denies polydipsia or polyuria PFSH PFSH Medical History (Updated 08/21/21 @ 23:[address] Isaias Bunch MD) History of pre-term labor Hypertension Home Medications ferrous sulfate [iron] 325 mg PO BID 09/12/20 [History Last Taken 09/17/20] acetaminophen 1,000 mg PO Q6 #60 tab 09/14/20 [Rx Last Taken 09/18/20] ibuprofen 600 mg PO Q6H #60 tab 09/14/20 [Rx Last Taken 09/18/20] sennosides-docusate sodium [Stool Softener-Stimulant Laxat] 1 - 2 tab PO DAILY #14 tab 09/14/20 [Rx Last Taken 09/17/20] simethicone [Mi-Acid Gas Relief(simethicon)] 80 mg PO TID #20 tab 09/14/20 [Rx Last Taken 09/17/20] labetalol 300 mg PO Q8H #90 tab 09/19/20 [Rx Last Taken Unknown] labetalol 300 mg PO TID #90 tab 09/19/20 [Rx Last Taken Unknown] nifedipine 30 mg PO DAILY #30 tab 09/19/20 [Rx Last Taken Unknown] nifedipine [Procardia XL] 30 mg PO DAILY #30 tab 09/19/20 [Rx Last Taken Unknown] Allergy/AdvReac Type Severity Reaction Status Date / Time No Known Allergies Allergy Verified 08/21/21 21:26 Surgical History History of emergency section Social History Smoking Status: Never smoker alcohol intake: never EXAM Physical Exam Const Vital Signs: 08/21/21 21:23 08/21/21 22:04 Temperature 97.9 F Temperature Source Temporal Pulse Rate 117 H Respiratory Rate 18 Respiratory Effort Normal Non-Labored Respiratory Pattern Normal Blood Pressure 153/99 H Blood Pressure Mean 117 Pulse Ox 96 Oxygen Delivery Method Room Air Positive well nourished and well developed General Appearance ED: well developed and NAD HEENT Reports moist mucous membranes normocephalic and atraumatic Face and Sinus: normal facial exam and sinuses nontender Throat: Negative for posterior oropharynx abnormal Eyes PERRL, EOMs intact bilaterally and no scleral icterus Conjunctiva: conjunctiva abnormal bilateral injection (Without chemosis or active discharge) diffuse Neck no lymphadenopathy, supple and no meningeal signs Resp normal respiratory effort and clear to auscultation bilaterally Cardio no murmurs Rate: regular rate Rhythm: regular rhythm GI normal to inspection, nondistended, normoactive bowel sounds, soft to palpation, non-tender and non-distended Extremity normal to inspection, full ROM, no calf tenderness and no pedal edema Neuro oriented x3, CN's II-XII intact bilaterally and no sensory deficits noted Sensorium / Orientation: alert Motor Exam: strength 5/5 throughout Skin Lesions: no lesions Rashes: no rashes MDM MDM MDM Narrative Medical decision making narrative: Rapid COVID and influenza swabs were obtained in this patient and both are negative. Aside from the conjunctivitis, all of her symptoms are consistent with COVID so I am sending a send out PCR since she is unvaccinated. However, it is certainly possible she simply has a viral syndrome and her conjunctivitis is not getting better most likely because it is viral in etiology. Furthermore, I do not think she has acute sinusitis. She has no sinus tenderness, and she simply is congested which is not the same thing, so that is probably why the Augmentin is not making her better, and it may be actually causing her to have the diarrhea she is now experiencing so I recommend discontinuing that and the eyedrops. Close outpatient follow-up and supportive care advised. Discharge Plan Triage Chief Complaint: Cold Sx ED Provider: Isaias Bunch Dx/Rx/DC Orders Clinical Impression: Acute viral syndrome, Acute viral conjunctivitis of both eyes Instructions: ED Conjunctivitis, Viral, ED Viral Syndrome (Adult) Prescriptions: Continued ferrous sulfate [iron] 325 mg (65 mg iron) Tablet 325 mg PO BID RF: 0 acetaminophen 500 mg Tablet 1,000 mg PO Q6 Qty: 60 RF: 0 ibuprofen 600 mg tablet 600 mg PO Q6H Qty: 60 RF: 0 sennosides-docusate sodium [Stool Softener-Stimulant Laxat] 8.6-50 mg Tablet 1 - 2 tab PO DAILY Qty: 14 RF: 0 simethicone [Mi-Acid Gas Relief(simethicon)] 80 mg Tablet,Chewable 80 mg PO TID Qty: 20 RF: 0 nifedipine 30 mg Tablet Extended Release 24hr 30 mg PO DAILY Qty: 30 RF: 2 labetalol 200 mg Tablet 300 mg PO Q8H Qty: 90 RF: 2 nifedipine [Procardia XL] 30 mg tablet extended release 24hr 30 mg PO DAILY Qty: 30 RF: 2 labetalol 300 mg tablet 300 mg PO TID Qty: 90 RF: 2 Discontinued ofloxacin 0.3 % drops See Rx Instructions ophthalmic (eye) .COMPLEX Qty: 10 RF: 0 amoxicillin-pot clavulanate 875-125 mg tablet 1 tab PO BID 10 Days Qty: 20 RF: 0 Primary Care Provider: Erich Sauer Referrals: Erich Sauer DO [Primary Care Provider] - 1 Week if not improving Activity Restrictions/Additional Instructions: May try decongestants for your nasal symptoms: Oral pseudoephedrine, phenylephrine, or nasal oxymetazoline spray. Disposition Disposition: Home, Self Care
[2021-08-21 23:26] VITALS: BP 132/98; PULSE 79; RESP 17; O2SAT 97
== END 2021-08-21 23:27 | disposition home or self-care (01) ==
PROVIDERS: Emergency Provider Emergency Medicine; PCP Student in an Organized Health Care Education/Training Program; Visit Provider Emergency Medicine
DX: B30.9 Viral conjunctivitis, unspecified (principal); B34.9 Viral infection, unspecified
CPT/HCPCS: 87428; 87635; 99282; U0003; U0005

== ENCOUNTER 2024-07-04 03:09 | Emergency (ER) | payer OTHER, SELFPAY ==
[2024-07-04 03:09] VITALS: BP 158/89; PULSE 111; RESP 16; TEMP 36.9; O2SAT 97; BMI 26.6
[2024-07-04 03:58] LABS: Absolute Lymphocyte Count 2.43 X10^3/uL (0.83-4.51); Absolute Neutrophil Count 4.6 X10^3/uL (2.0-7.7); Basophil# 0.05 X10^3/uL; Basophil% 0.6 % (0-1); Eosinophil# 0.08 X10^3/uL; Hematocrit 35.6 % (37-47); Lymphocyte # 2.43 X10^3/ul (0.83-4.51); Lymphocyte % 31.4 % (19-41); Mean Corp Hgb Conc 33.7 g/dL (32-36); Mean Corpuscular Hgb 27.7 pg (27.0-32.0); Mean Corpuscular Volume 82.2 fL (81-99); Monocyte# 0.58 X10^3/uL; Monocyte% 7.5 % (0-10); NRBC Flagged by Analyzer 0 % (0-5); Neutrophil # 4.57 X10^3/uL (2.7-7.7); Neutrophil % 59.2 % (47-70); Platelet Count 260 K/mm3 (150-450); RBC Distribution Width CV 13.1 % (11.6-14.6); RBC Distribution Width SD 38.8 fl (35.1-43.9); Red Blood Count 4.33 M/mm3 (4.2-5.4); White Blood Count 7.7 K/mm3 (4.4-11.0)
[2024-07-04 04:12] LABS: Internal QC Validated? YES +Cl - CLEAR BKGD; Pregnancy, Serum, hCG Quali. NEGATIVE Negative
[2024-07-04 04:22] LABS: Bacteria 0 SEEN /hpf (None Seen); Mucous, Urine 0 SEEN /hpf (<or=2+); Squamous Epithelial Cells - UA 0 SEEN /hpf (5-10); White Blood Cells 0 SEEN /hpf (0-5)
[2024-07-04 04:34] LABS: Color, Urine Yellow (Yellow); Glucose, Dipstick Normal (Normal); Ketone-Dipstick Negative (Negative); Leukocyte Esterase-Dipstick Negative /ul (Negative); Nitrite-Dipstick Negative (Negative); Occult Blood-Urine Negative /ul (Negative); Protein-Dipstick Negative (Negative); Urine Bilirubin Dipstick Negative (Negative); Urine Clarity Clear (Clear); Urine Urobilinogen Normal (Normal)
[2024-07-04] MEDS: Dicyclomine 10 MG Capsule 20 MG PO (04:39)
[2024-07-04] MEDS: Pantoprazole Sodium 40 MG Tablet PO (04:40)
[2024-07-04 04:43] LABS: Red Blood Cells-Urine 0 SEEN /hpf (0-5)
--- NOTE | 2024-07-04 04:58 | ED.VIS.GI ---
HPI HPI - GI History of Present Illness Chief Complaint: Abd Pain Informant: patient Narrative Narrative: Patient presents in the middle of the night after waking up with significant upper abdominal discomfort mostly epigastric some left upper quadrant. [place] uncomfortable, discomfort, some bloating. Some nausea. She took some Gas-X and by the time she got here to the ER for the severe pain, it was a lot better but started coming back some. She states right now it is not nearly as bad as it was before. She denies any radiation into her back or shoulders or chest. No dyspnea. No recent cough or other illness. No melena, problems with bowel movements recently last bowel movement was yesterday. She states she ate barbecue for dinner, it was around 5 or 6 PM, she presents to the ED around 0230 or so. Other than C-sections no other abdominal surgeries. [facility] Medical History History of pre-term labor Hypertension Home Medications ?Medication ?Instructions ?Recorded ?Last Taken ?Type dicyclomine 20 mg tablet 20 mg PO Q6H PRN PRN abdominal 07/04/24 Unknown Rx discomfort #20 tabs lisinopril 10 mg tablet 10 mg PO DAILY 07/04/24 Unknown History omeprazole magnesium PO DAILY 07/04/24 Unknown History Allergy/AdvReac Type Severity Reaction Status Date / Time No Known Allergies Allergy Verified 07/04/24 03:10 Surgical History History of emergency section Social History Smoking Status: Never smoker alcohol intake: never ROS ROS ED Constitutional Constitutional ED: Denies chills or fever(s) Eyes Eyes: Denies change in vision or diplopia ENT ENT ED: Denies rhinorrhea or sore throat Cardiovascular Cardiovascular: Denies chest pain or palpitations Respiratory/Chest Respiratory/Chest: Denies cough or dyspnea Gastrointestinal Gastrointestinal: Reports abdominal pain and nausea; Denies diarrhea or vomiting Genitourinary Genitourinary ED: Denies dysuria or hematuria Musculoskeletal Musculoskeletal: Denies back pain or neck pain Integumentary Denies abscess or rash Neurologic Neurologic: Denies headache(s), paresthesias or weakness Psychiatric Psychiatric: Denies anxiety or suicidal thoughts EXAM Physical Exam Const Vital Signs: 07/04/24 03:09 07/04/24 05:24 Temperature 98.4 F Temperature Source Oral Pulse Rate 111 H 61 Respiratory Rate 16 Blood Pressure 158/89 H 134/88 H Blood Pressure Mean 112 103 Pulse Ox 97 Oxygen Delivery Method Room Air Positive well nourished and well developed General Appearance ED: well developed and NAD HEENT Reports moist mucous membranes normocephalic and atraumatic Eyes PERRL and EOMs intact bilaterally Neck full ROM and supple Resp normal respiratory effort and clear to auscultation bilaterally Cardio regular rate, regular rhythm and no murmurs GI non-tender and non-distended Auscultation: normoactive bowel sounds Palpation: soft Back/Spine no CVA tenderness General Back: other FROM Extremity normal to inspection General Extremety ED: Negative for edema, pulses abnormal or tenderness General Extremity: Negative for edema or pulses abnormal Neuro oriented x3, CN's II-XII intact bilaterally and no sensory deficits noted Sensorium / Orientation: awake and alert Motor Exam: strength 5/5 throughout Skin no rashes or lesions noted and no wounds MDM MDM MDM Narrative Medical decision making narrative: Patient is well-appearing with a very benign abdomen, in context of still having some discomfort making biliary etiology much less likely. I did send labs including CBC, CMP, lipase, to rule out ectopic the latter was negative, urine was normal. I also did a bedside ultrasound, there is no sonographic Alfaro and I see no cholelithiasis. This is most likely consistent with dyspepsia and/or other intraluminal or functional GI etiology. She was given some viscous lidocaine in addition to some IV Toradol and oral dicyclomine. She feels much better on reevaluation. Her labs are all normal I reviewed them. I did a bedside ultrasound of her gallbladder. I see no stones, she has a negative sonographic Alfaro, the gallbladder is not large and distended, and the wall is not thickened at 0.18 cm, well within normal limits. She is already on a PPI. Gave her prescription for dicyclomine to use as needed, I agree with continued use Gas-X and other [id number] upper GI remedies as needed for recurrent symptoms. Lab Data Attestation: I reviewed the patient's lab results. Labs: Laboratory Results - last 24 hr 07/04/24 07/04/24 03:21 04:19 WBC 7.7 RBC 4.33 Hgb 12.0 Hct 35.6 L MCV 82.2 MCH 27.7 MCHC 33.7 RDW Std Deviation 38.8 RDW Coeff of Faisal 13.1 Plt Count 260 MPV 11.0 Immature Gran % (Auto) 0.300 Neut % (Auto) 59.2 Lymph % (Auto) 31.4 [place] % (Auto) 7.5 Eos % (Auto) 1.0 Baso % (Auto) 0.6 Absolute Neuts (auto) 4.6 Absolute Lymphs (auto) 2.43 Nucleated RBC % 0 Sodium 140 Potassium 3.6 Chloride Direct 105 Carbon Dioxide 20.5 L Anion Gap 14 BUN 9 Creatinine 0.81 Estim Creat Clear Calc 98.27 Est GFR (MDRD) Non-Af 96 BUN/Creatinine Ratio 11.3 Glucose 102 H Calcium 9.1 Total Bilirubin 0.17 AST 17 ALT 8 Alkaline Phosphatase 68 Total Protein 7.4 Albumin 4.4 Globulin 3.0 Albumin/Globulin Ratio 1.4 Lipase 32 Serum , Qual NEGATIVE Urine Color Yellow Urine Clarity Clear Urine pH 7.0 Ur Specific [place] 1.010 Urine Protein Negative Urine Glucose (UA) Normal Urine Ketones Negative Urine Occult Blood Negative Urine Nitrite Negative Urine Bilirubin Negative Urine Urobilinogen Normal Ur Leukocyte Esterase Negative Urine RBC 0 SEEN Urine WBC 0 SEEN Ur Squamous Epith Cells 0 SEEN Urine Bacteria 0 SEEN Urine Mucus 0 SEEN Discharge Plan Triage Chief Complaint: Abd Pain ED Provider: Isaias Bunch Dx/Rx/DC Orders Clinical Impression: Abdominal pain, acute, epigastric Instructions: ED Epigastric Pain Uncertain Cause Prescriptions: New dicyclomine 20 mg tablet 20 mg PO Q6H PRN PRN (Reason: abdominal discomfort) Qty: 20 0RF No Action lisinopril 10 mg tablet 10 mg PO DAILY omeprazole magnesium [Prilosec OTC] PO DAILY Primary Care Provider: Erich Sauer Referrals: Erich Sauer DO [Primary Care Provider] - 3-5 Days if not improving Print Language: Macedonian Disposition Disposition: Home, Self Care
[2024-07-04 05:02] LABS: ALB/GLOB Ratio 1.4 RATIO (0.9-2.4); AST(SGOT) 17 U/L (<=31); Alanine Aminotransfer ALT/SGPT 8 U/L (<=34); Albumin, Serum 4.4 g/dL (3.5-5.0); Alkaline Phosphatase 68 U/L (35-104); Anion Gap 14 (5-15); BUN 9 mg/dL (4-19); BUN/Creat Ratio 11.3 RATIO (10-20); Calcium 9.1 mg/dL (7.6-11.0); Carbon Dioxide 20.5 mmol/L (22.0-29.0); Chloride 105 mmol/L (96-108); Creatinine, Serum 0.81 mg/dL (0.70-1.20); EST Glomerular Filtration Rate 96 (>60); Estimated Creatinine Clearance 98.27 ml/min (50-250); Glucose 102 mg/dL (70-99); Lipase 32 U/L (13-75); Potassium 3.6 mmol/L (3.3-5.1); Protein, Total 7.4 g/dL (5.9-8.4); Sodium Level 140 mmol/L (133-145); Total Bilirubin 0.17 mg/dL (0.00-1.30)
[2024-07-04 05:24] VITALS: BP 134/88; PULSE 61
== END 2024-07-04 05:50 | disposition home or self-care (01) ==
PROVIDERS: Emergency Provider Emergency Medicine; PCP Student in an Organized Health Care Education/Training Program; Visit Provider Emergency Medicine
DX: R10.13 Epigastric pain (principal); I10 Essential (primary) hypertension; Z79.899 Other long term (current) drug therapy
CPT/HCPCS: 80053; 81001; 83690; 84703; 85025; 99283; A4216